=== PATIENT | male | born 1955 | race Caucasian/White ===

== ENCOUNTER → 2017-03-28 | Outpatient (CLI) | payer BC, OTHER ==
[~2017-03-28] MED LIST: AMLODIPINE BESY10 MG PO; ASA5UEC PO; ASPIRIN325 PO; CALCIUM 600 +1 EAC1 PO; CENTRUM SILVER1 EAC4 PO; LISINOPRIL20 MG PO; LISINOPRIL40 MG PO; PERCOCET 7.5-31 EACH PO; PLAVIX 75 MG TA75 M1 PO
== END ==
LOC: HYPER 03-24 10:05
DX: S90.521A Blister (nonthermal), right ankle, initial encounter (principal); E11.622 Type 2 diabetes mellitus with other skin ulcer; L97.311 Non-pressure chronic ulcer of right ankle limited to breakdown of skin; L89.513 Pressure ulcer of right ankle, stage 3; M21.41 Flat foot [pes planus] (acquired), right foot; M67.873 Other specified disorders of tendon, right ankle and foot; F17.210 Nicotine dependence, cigarettes, uncomplicated; E11.610 Type 2 diabetes mellitus with diabetic neuropathic arthropathy; Z87.891 Personal history of nicotine dependence; Z72.89 Other problems related to lifestyle; X58.XXXA Exposure to other specified factors, initial encounter; Y93.89 Activity, other specified; Y92.89 Other specified places as the place of occurrence of the external cause; Y99.8 Other external cause status

== ENCOUNTER → 2017-04-06 | Outpatient (CLI) | payer BC, OTHER | LOC: HYPER 04-04 13:07 | DX: E11.622 Type 2 diabetes mellitus with other skin ulcer (principal); L97.311 Non-pressure chronic ulcer of right ankle limited to breakdown of skin; L89.513 Pressure ulcer of right ankle, stage 3; M21.41 Flat foot [pes planus] (acquired), right foot; M14.60 Charcot's joint, unspecified site; M67.873 Other specified disorders of tendon, right ankle and foot; F17.210 Nicotine dependence, cigarettes, uncomplicated; B95.61 Methicillin susceptible Staphylococcus aureus infection as the cause of diseases classified elsewhere; Z72.89 Other problems related to lifestyle ==

== ENCOUNTER 2017-07-04 05:19 | Day surgery (SDC) | payer BC, OTHER ==
[~2017-07-04] VITALS: Ht 190.5 cm; Wt 122.9 kg
[2017-07-04] VITALS (7 sets, daily range): BP systolic 85–128; BP diastolic 47–96
--- NOTE | ~2017-07-04 | O ---
[facility] [place] [address] OPERATIVE REPORT Name: DASH SY Room #: DEP [facility]#: [id number] Admission: 07/04/17 Attend Phys: Abe Oakley MD Discharge: 07/05/17 Date of : 57 Report #: [id number] THIS REPORT FOR: //name// CC: Dash Oakley DATE OF SERVICE: 07/04/2017 PREOPERATIVE DIAGNOSES: 1. Right ankle Charcot arthropathy. 2. Right hindfoot retained hardware. POSTOPERATIVE DIAGNOSES: 1. Right ankle Charcot arthropathy. 2. Right hindfoot retained hardware. PROCEDURE: 1. Right foot hardware removal. 2. Right tibiotalar calcaneal arthrodesis. SURGEON: Abe Oakley M.D. RANGE MANAGER: None. ESTIMATED BLOOD LOSS: 50 mL. DRAINS: No drains. TOURNIQUET TIME: Two hours. DESCRIPTION OF PROCEDURE: The patient brought to the operating room where he was placed under general anesthesia. Once under adequate general anesthesia, his right lower extremity was prepped and draped in a sterile manner. The extremity was elevated, exsanguinated and a tourniquet placed to 300 mmHg. An anterior incision in the patient's previous scar was then made and dissected down through the soft tissue to the talus and the tarsal navicular. The 7.3 mm cannulated screws were identified and the guidewire placed through them. These screws were then subsequently removed from the talar neck. Similarly, the 4.5 mm cannulated screws that had been across the talonavicular joint were removed as well through the same incision. Laterally, a lateral incision was made over the calcaneocuboid joint and exposure of the screw heads for the 4.5 mm cannulated screws there was made and these were then subsequently removed utilizing fluoroscopy for localization and placement of the guidewires and removal of the screws. Once all the screws were removed, the tibiotalar joint was attended to, any cartilage on the tibia was removed. 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 This cartilage there was also removed with [facility] [address] [place] [address] OPERATIVE REPORT Name: DASH SY Kathleen Room #: DEP [facility] M.R.#: [id number] Admission: 07/04/17 Attend Phys: Abe Oakley MD Discharge: 07/05/17 Date of : 57 Report #: [id number] osteotomes and a rongeur. Once complete, a guidewire for the [employer] tibiotalar calcaneal arthrodesis nail was then placed from the plantar aspect of the calcaneus through the talus and into the tibia utilizing fluoroscopy for guidance. The large bore reamer was then placed across this and the guidewire for the [employer] retrograde intramedullary nail was then placed. Sequential reaming to 11 mm was then achieved and subsequently the long [employer]s tibiotalar calcaneal arthrodesis nail was placed from the plantar foot into the tibia through the calcaneus and talus. Subsequent fixation was achieved utilizing the outrigger jig to place 2 posterior to anterior screws through the very distal nail through the calcaneus. Fluoroscopy was used to verify the position to be satisfactory and similarly two transverse locking screws were placed proximally through the same jig after fixing the position. So, there was a plantar foot wound, a posterior calcaneal wound and two additional proximal wounds over the proximal locking screws where these incisions were made. Once complete, final fluoroscopic images were taken to verify the position to be satisfactory. The wounds were irrigated copiously and closed with 2-0 Vicryl in the deep and subcutaneous tissues and bravo were used for the skin. The wounds were dressed with Xeroform, 4 x 4s, and a sterile soft compressive dressing was placed. Tourniquet was let down at 2 hours. Toes were pink and warm with good capillary refill. There were no complications from the procedure. The patient tolerated the procedure well and went to the recovery room without incident. <ELECTRONICALLY SIGNED> By: Abe Oakley MD 07/22/17 1149 1512 1557 Abe Oakley MD /nt
--- NOTE | ~2017-07-04 | EKG ---
[address] [address] ELECTROCARDIOGRAM REPORT Name: DASH SY Room #: 408-P [facility]#: [id number] Admission: 07/04/17 Attend Phys: Abe Oakley MD Discharge: Date of : 57 Report #: [id number] THIS REPORT FOR: //name// [facility] Test Date: 2017-07-04 Test Time: 11:03:11 Pat Name: DASH SY Department: Room: 150 1 Gender: M [employer] Supervisor: TAHIRA : 1955 Requested By: Abe Oakley Order Number: [id number] MD: Daniel Bashir Measurements Intervals [place] Rate: 94 P: 44 LA: 196 QRS: 35 QRSD: 103 T: -10 QT: 358 QTc: 448 Interpretive Statements Sinus rhythm Possible Inferior infarct, old Compared to ECG 06/22/2016 07:02:53 Myocardial infarct finding now present Atrial premature complex(es) no longer present Electronically Signed On 07-04-2017 16:41:58 CDT by Daniel Bashir [email or web address] <ELECTRONICALLY SIGNED> By: Daniel Bashir MD, [facility] 07/04/17 1641 1103 1103 Daniel Bashir MD, [facility] /EPI
[2017-07-05 05:23] VITALS: BP 153/95
[2017-07-05 05:57] LABS: HEMATOCRIT 40.5 % (42.0-52.0); HEMOGLOBIN 13.3 gm/dL (14.0-18.0)
[2017-07-05 06:06] LABS: POTASSIUM 4.3 mmol/L (3.5-5.1)
[2017-07-05 08:03] VITALS: BP 123/86
[2017-07-05 11:13] VITALS: BP 142/98
[2017-07-05] MEDS ORDERED: ASPIRIN325 PO (11:47)
[2017-07-05 11:56] VITALS: BP 142/98
== END 2017-07-05 14:49 | disposition home or self-care (01) ==
LOC: TBA 05:19 → OR 05:19 → 4N 16:18 → ENTRNSPT 07-05 12:33 → EDTRNSPTSTS 07-05 12:35 → OR 07-05 14:49
PROVIDERS: Orthopaedic Surgery Foot and Ankle Surgery
DX: M12.871 Other specific arthropathies, not elsewhere classified, right ankle and foot (principal); M14.671 Charcot's joint, right ankle and foot; T84.84XA Pain due to internal orthopedic prosthetic devices, implants and grafts, initial encounter; I10 Essential (primary) hypertension; I73.89 Other specified peripheral vascular diseases; F17.210 Nicotine dependence, cigarettes, uncomplicated; Z98.890 Other specified postprocedural states; Z79.82 Long term (current) use of aspirin; Z79.899 Other long term (current) drug therapy; Z79.891 Long term (current) use of opiate analgesic; Y83.8 Other surgical procedures as the cause of abnormal reaction of the patient, or of later complication, without mention of misadventure at the time of the procedure
CPT/HCPCS: 10790; 50010; 50101; 50386; 50635; 50951; 51412; 53023; 55430; 56524; 56525; 57091; 62110; 62900; 70005

== ENCOUNTER → 2017-08-11 | Outpatient (CLI) | payer BC, OTHER | LOC: HYPER | DX: T81.31XA Disruption of external operation (surgical) wound, not elsewhere classified, initial encounter (principal); L89.610 Pressure ulcer of right heel, unstageable; M14.679 Charcot's joint, unspecified ankle and foot; Z87.891 Personal history of nicotine dependence; Y83.8 Other surgical procedures as the cause of abnormal reaction of the patient, or of later complication, without mention of misadventure at the time of the procedure ==

== ENCOUNTER → 2017-08-25 | Outpatient (CLI) | payer BC, OTHER | LOC: HYPER 08:03 | DX: T81.4XXD Infection following a procedure, subsequent encounter (principal); E11.622 Type 2 diabetes mellitus with other skin ulcer; L89.613 Pressure ulcer of right heel, stage 3; L97.411 Non-pressure chronic ulcer of right heel and midfoot limited to breakdown of skin; E11.610 Type 2 diabetes mellitus with diabetic neuropathic arthropathy; B95.61 Methicillin susceptible Staphylococcus aureus infection as the cause of diseases classified elsewhere; M67.873 Other specified disorders of tendon, right ankle and foot; M21.41 Flat foot [pes planus] (acquired), right foot; F17.200 Nicotine dependence, unspecified, uncomplicated; Y83.8 Other surgical procedures as the cause of abnormal reaction of the patient, or of later complication, without mention of misadventure at the time of the procedure ==